=== PATIENT | female | born 1990 | race Caucasian/White ===

== ENCOUNTER 2016-05-14 17:10 | Emergency (ER) | payer OTHER ==
--- NOTE | ~2016-05-14 | CR173 ---
[facility] A Service of [facility] RADIOLOGY TEXT RESULTS PATIENT: TABITHA DE DIOS LOCATION: SED : 91 UNIT #: [id number] AGE: [address]: BRANDEE EPSTEIN SEX: F ORDER DR: [id number] [place] [id number] E MR#: [id number] Acc #: [id number] NAME: TABITHA DE DIOS : 1990 SEX: F STUDY DATE/TIME: 05/14/2016 17:06 UNIT: SED ROOM: STUDY DESCRIPTION: CR Knee 3 Views Rt Attending Physician: Brandee Epstein A.P.R.N. Ordering Physician: Brandee Epstein A.P.R.N. Primary Care Physician: Kate Sanders M.D. MEDICAL IMAGING REPORT This report is preliminary unless electronic signature is present. EXAM Right knee, 3 views. DATE OF EXAM 05/14/2016 HISTORY Right knee pain and swelling, status post fall last night at home. FINDINGS AP and lateral projection of the knee shows smooth articular anatomy without indication of fracture or dislocation at the major weight-bearing surface of the knee. There is no indication of radiopaque foreign body about the knee surface or joint effusion. IMPRESSION Normal right knee. Dictated by... Kevin Ramirez M.D. THIS IS AN ELECTRONICALLY VERIFIED REPORT Kevin Ramirez M.D. at 05/15/2016 9:04 AM AJITH/sergio TD: 05/14/2016 22:17 JOB #: [id number] [facility] A Service [facility] RADIOLOGY TEXT RESULTS PATIENT: TABITHA DE DIOS LOCATION: SED : 91 UNIT #: [id number] AGE: [address]: BRANDEE EPSTEIN SEX: F ORDER DR: MEDICAL IMAGING REPORT
--- NOTE | ~2016-05-14 | CR172 ---
[facility]. [facility] A Service of [facility] & [facility] RADIOLOGY TEXT RESULTS PATIENT: TABITHA DE DIOS LOCATION: SED : 91 UNIT #: [id number] AGE: [address]: BRANDEE EPSTEIN SEX: F ORDER DR: [id number] [place] [id number] E MR#: [id number] Acc #: [id number] NAME: TABITHA DE DIOS : 1990 SEX: F STUDY DATE/TIME: 05/14/2016 17:06 UNIT: SED ROOM: STUDY DESCRIPTION: CR Knee 3 Views Lt Attending Physician: Brandee Epstein A.P.R.N. Ordering Physician: Brandee Epstein A.P.R.N. Primary Care Physician: Kate Sanders M.D. MEDICAL IMAGING REPORT This report is preliminary unless electronic signature is present. EXAM Left knee 3 views 05/14/2016 HISTORY Left knee pain and swelling status post fall last night at home. FINDINGS AP and lateral projection of the knee shows smooth articular anatomy without indication of fracture or dislocation at the major weight-bearing surface of the knee. There is no indication of radiopaque foreign body about the knee surface or joint effusion. IMPRESSION Normal knee. Dictated by... Kevin Ramirez M.D. THIS IS AN ELECTRONICALLY VERIFIED REPORT Kevin Ramirez M.D. at 05/15/2016 9:04 AM AJITH/sandie TD: 05/14/2016 22:01 JOB #: [id number] MEDICAL IMAGING REPORT
--- NOTE | ~2016-05-14 | CR127 ---
[facility]. [facility] A Service of [facility] & [facility] RADIOLOGY TEXT RESULTS PATIENT: TABITHA DE DIOS LOCATION: SED : 91 UNIT #: [id number] AGE: [address]: BRANDEE EPSTEIN SEX: F ORDER DR: [id number] [address] [address] [id number] E MR#: [id number] Acc #: [id number] NAME: TABITHA DE DIOS : 1990 SEX: F STUDY DATE/TIME: 05/14/2016 17:06 UNIT: SED ROOM: STUDY DESCRIPTION: CR Foot Complete Min 3 View Rt Attending Physician: Brandee Epstein A.P.R.N. Ordering Physician: Harry Epstein Primary Care Physician: Kate Sanders M.D. MEDICAL IMAGING REPORT This report is preliminary unless electronic signature is present. EXAM Right foot 3 views 05/14/2016 HISTORY Right foot pain and swelling status post fall last night at home. FINDINGS The tarsal, metatarsal, and phalangeal elements are all anatomically normal in position and alignment. There are no articular defects. No fractures or radiopaque foreign bodies in the soft tissues are apparent. IMPRESSION Normal foot. Dictated by... Kevin Ramirez M.D. THIS IS AN ELECTRONICALLY VERIFIED REPORT Kevin Ramirez M.D. at 05/15/2016 9:04 AM AJITH/sandie TD: 05/14/2016 22:01 JOB #: [id number] MEDICAL IMAGING REPORT
--- NOTE | ~2016-05-14 | CR126 ---
[facility]. [facility] A Service of [facility] & [facility] RADIOLOGY TEXT RESULTS PATIENT: TABITHA DE DIOS LOCATION: SED : 91 UNIT #: [id number] AGE: [address]: BRANDEE EPSTEIN SEX: F ORDER DR: [id number] [address] [address] [id number] E MR#: [id number] Acc #: [id number] NAME: TABITHA DE DIOS : 1990 SEX: F STUDY DATE/TIME: 05/14/2016 17:06 UNIT: SED ROOM: STUDY DESCRIPTION: CR Foot Complete Min 3 View Lt Attending Physician: Brandee Epstein A.P.R.N. Ordering Physician: Brandee Epstein A.P.R.N. Primary Care Physician: Kate Sanders M.D. MEDICAL IMAGING REPORT This report is preliminary unless electronic signature is present. EXAM Left foot, 3 views. DATE OF EXAM 05/14/2016 HISTORY Left foot pain and swelling status post fall last night at home. FINDINGS The tarsal, metatarsal, and phalangeal elements are all anatomically normal in position and alignment. There are no articular defects. No fractures or radiopaque foreign bodies in the soft tissues are apparent. IMPRESSION Normal left foot. Dictated by... Kevin Ramirez M.D. THIS IS AN ELECTRONICALLY VERIFIED REPORT Kevin Ramirez M.D. at 05/15/2016 9:04 AM AJITH/sergio TD: 05/14/2016 22:18 JOB #: [id number] MEDICAL IMAGING REPORT
[~2016-05-14 17:10] MED LIST: BCP; NO MEDICATIONS; SUDAFED PLUS
== END 2016-05-14 18:24 | disposition home or self-care (01) ==
LOC: SED 17:10
DX: S80.02XA Contusion of left knee, initial encounter (principal); S80.01XA Contusion of right knee, initial encounter; S90.32XA Contusion of left foot, initial encounter; S90.31XA Contusion of right foot, initial encounter; Z23 Encounter for immunization; W19.XXXA Unspecified fall, initial encounter; Y92.9 Unspecified place or not applicable
CPT/HCPCS: 73562; 73630; 90471; 90715; 99284

== ENCOUNTER 2016-09-09 18:37 | Emergency (ER) | payer OTHER | END 2016-09-09 19:45 | disposition home or self-care (01) | LOC: SED 18:37 | DX: R21 Rash and other nonspecific skin eruption (principal); Z90.49 Acquired absence of other specified parts of digestive tract | CPT/HCPCS: 99282 ==